=== PATIENT | female | born 1945 | race Two or more races ===

== ENCOUNTER 2022-08-29 15:07 | Emergency (ER) | payer OTHER ==
[~2022-08-29] VITALS: Ht 149.9 cm; Wt 45.0 kg
[~2022-08-29 15:07] MED LIST: COZAAR PO; GLYB1POW PO; HYDRPOW88 PO
[2022-08-29] MEDS ORDERED: SODIUM CHLORIDE 0.9% 1,000 ML IV ONE (16:30)
[2022-08-29 16:43] LABS: Basophils # (auto) 0 10 ^3/uL (0-0.2); Basophils % (auto) 0.7 % (0.0-2.0); Eosinophils # (auto) 0 10 ^3/uL (0-0.8); Eosinophils % (auto) 0.4 % (0.0-7.0); Hemoglobin 11.9 g/dL (12.2-16.2); Lymphocytes # (auto) 0.9 10 ^3/uL (0.4-5.4); Lymphocytes % (auto) 16.6 % (10.0-50.0); Mean Corpuscular Hgb Conc. 33.9 g/dL (32.0-36.0); Mean Corpuscular Volume 91.4 fL (80.0-100.0); Monocytes # (auto) 0.2 10 ^3/uL (0-1.3); Monocytes % (auto) 4.5 % (0.0-12.0); Neutrophils # (auto) 4.2 10 ^3/uL (1.6-8.6); Neutrophils % (auto) 77.8 % (37.0-80.0); Red Blood Cells 3.83 10^6/uL (4.0-5.20); Red Cell Distribution Width 13.2 % (11.8-14.3); White Blood Cell 5.4 10^3/uL (4.4-10.8)
[2022-08-29 17:06] LABS: Albumin 3.6 g/dL (3.4-5.0); BUN/Creatinine Ratio 26.1 (10.0-20.0); Calcium 9.6 mg/dL (8.5-10.1); Potassium 3.6 mmol/L (3.5-5.1)
[2022-08-29 17:09] LABS: Bilirubin, Total 0.4 mg/dL (0.2-1.0)
[2022-08-29] MEDS ORDERED: ZOFR4T PO (17:56)
[2022-08-29] MEDS ORDERED: ACETAMINOPHEN 325 MG TAB PO ONE (22:00)
[2022-08-29 22:29] LABS: Urine Bacteria NONE SEEN /hpf (None Seen); Urine Blood Negative /uL (Negative); Urine Specific Gravity 1.008 (1.001-1.035); Urine WBC 4 /hpf (0 - 5)
[2022-08-29] MEDS ORDERED: ONDANSETRON ODT 4 MG TAB PO ONE (22:30)
[2022-08-29] MEDS ORDERED: cefTRIAXone 1GM/50ML D5W 50 ML IV ONE (23:00)
[2022-08-29] MEDS ORDERED: SODIUM CHLORIDE 0.9% 500 ML IV ONE (23:00)
[2022-08-30 04:11] VITALS: BP 169/63
[2022-08-30] MEDS ORDERED: PERCOT PO (05:33)
[2022-08-30] MEDS ORDERED: LEVO500T91 PO (05:33)
[2022-08-30] MEDS ORDERED: ZOFR4T PO (05:33)
== END 2022-08-30 06:21 | disposition home or self-care (01) ==
LOC: EDBD 15:07 → ER 15:11
DX: N39.0 Urinary tract infection, site not specified (principal); R10.30 Lower abdominal pain, unspecified; R53.1 Weakness; R53.81 Other malaise; I10 Essential (primary) hypertension; E11.9 Type 2 diabetes mellitus without complications; G45.9 Transient cerebral ischemic attack, unspecified
CPT/HCPCS: 36415; 70450; 71045; 74176; 80053; 81001; 82962; 84484; 85025; 96365; 99285; J0696; Q0162; 93005